=== PATIENT | female | born 1980 | race Caucasian/White ===

== ENCOUNTER → 2018-01-25 | Day surgery (SDC) | payer BC, OTHER ==
[2018-01-22 14:38] VITALS: BMI 34.6
[~2018-01-25] MED LIST: IBUPROFEN 600 MG TABLET (FP) PO PRN; LACTATED RINGERS SOLUTION 1,000 ML IV SCH; MIDAZOLAM HCL 2 MG/2 ML SINGLE DOSE VIAL ONE; ONDANSETRON 4 MG/2 ML VIAL IVPUSH PRN; PROMETHAZINE HCL 25 MG/1 ML VIAL IVPUSH PRN; PROPOFOL 20 ML ONE; ceFAZolin SODIUM 1 GM VIAL IVPB ONE; oxyCODONE HCL 5 MG TABLET ONE; oxyCODONE HCL 5 MG TABLET PO ONE; oxyCODONE HCL 5 MG TABLET PO PRN
--- NOTE | 2018-01-25 09:53 | HP ---
Past Medical History - Primary Care Physician PCP:: Josh Novak - Admission Chief Complaint: 37yo female with menorrhagia, admitted for thermal endometrial ablation. History of Present Illness: Failed conservative management of menorrhagia. Pt with regular menses and dysmenorrhea, suspected adenomyosis. History Source: Patient, Medical Record Limitations to Obtaining History: No Limitations - Past Medical History DIET TECH: No: Alzheimer's, CVA, Dementia, Migraine, Multiple Sclerosis, Peripheral Neuropathy, Parkinson's, Seizure, Syncope, TIA, Vertigo, Other Cardiovascular: No: AFIB, Aneurysm, Aortic Insufficiency, Aortic Stenosis, CAD, CHF, Deep Vein Thrombosis, HTN, Hyperlipdemia, OR, Mitral Insufficiency, Mitral Stenosis, Murmur, Pulmonary Hypertension, Other Pulmonary: No: Asthma, Bronchitis, Cancer, COPD, O2 Dependent, Pneumonia, Previously Intubated, Pulmonary Embolus, Pulmonary Fibrosis, Sleep Apnea, Other Gastrointestinal: No: Ascites, Cancer, Constipation, Crohn's Disease, Diverticulitis, Diverticulosis, Esophageal Varices, Gastritis, GERD, GI Bleed, Hemorrhoids, Hiatal Hernia, Inflamatory Bowel Disease, Irritable Bowel Disease, Pancreatitis, Peptic Ulcer Disease, Ulcerative Colitis, Other Hepatobiliary: No: Cirrhosis, Cholelithiasis, Cholecystitis, Choledocholithiasis , Hepatitis A, Hepatitis B, Hepatitis C, Other Renal/: No: Renal Failure, Renal Inusuff, BPH, Cancer, Hematuria, Hemodialysis , Neurogenic Bladder, Renal Calculi, UTI, Other Reproductive: Yes: Other (suspected adenomyosis of uterus) ...: 3 ...Para: 2 ( x 1, C/S x 1) ...Term: 2 ...Induced : 1 Heme/Onc: No: Anemia, B12 Deficiency, Bleeding Disorder, Cancer, Current Chemotherapy, Current Radiation Therapy, Hemochromatosis, Hypercoaguable State, Myeloproliferative Synd, Sickle Cell Disease, Sickle Cell Trait, Thrombocytopenia, Other Infectious Disease: No: AIDS, C-Diff, Herpes Zoster, HIV, MRSA, STD's, Tuberculosis, VREF, Other Psych: No: Addictions, Anxiety, Bipolar, Depression, Panic, Psychosis, Schizophrenia, Other Musculoskeletal: No: Bursitis, Chronic low back pain, Hemiparesis, Hemiplegia, Osteoarthritis, Paraplegia, Other Rheumatology: No: Fibromyalgia, Gout, Lupus, Rheumatoid Arthritis, Sarcoidosis, Vasculitis, Other ENT: No: Allergic Rhinitis, Sinusitis, Other Endocrine: Yes: Other (Obesity) Dermatology: No: Basal Cell, Cellulitis, Eczema, Melanoma, Psoriasis, Squamous Cell, Other - Past Surgical History Past Surgical History: Yes: Arthrosocopy (left wrist), Hx Myomectomy: No Hx Transabdominal Cerclage: No Additional Surgical History: LASIK, breast cyst aspiration, - Advance Directives Advance Directives: Yes: Health Care Proxy - Smoking History Smoking history: Former smoker Have you smoked in the past 12 months: No Aproximately how many cigarettes per day: 1 If you are a former smoker, when did you quit?: 2003 - Alcohol/Substance Use Hx Alcohol Use: Yes (social) History of Substance Use: reports: None - Social History Usual Living Arrangement: Yes: With Spouse ADL: Independent 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 History of Recent Travel: No Home Medications - Allergies Allergies/Adverse Reactions: Allergies Allergy/AdvReac Type Severity Reaction Status Date / Time sumatriptan [From Imitrex] Allergy Verified 01/25/18 08:56 zolmitriptan [From Zomig] Allergy Verified 01/25/18 08:56 bandaids Allergy Uncoded 01/25/18 08:56 - Home Medications Home Medications: Ambulatory Orders NK [No Known Home Medication] 01/22/18 Family Disease History - Family Disease History Family Disease History: CA: Father (Pancreatic) Review of Systems Findings/Remarks: Well appearing - Review of Systems Constitutional: reports: No Symptoms Eyes: reports: No Symptoms HENT: reports: No Symptoms Neck: reports: No Symptoms Cardiovascular: reports: No Symptoms Respiratory: reports: No Symptoms Gastrointestinal: reports: No Symptoms Genitourinary: reports: No Symptoms Breasts: reports: No Symptoms Reported Musculoskeletal: reports: No Symptoms Integumentary: reports: No Symptoms Neurological: reports: No Symptoms Endocrine: reports: No Symptoms Hematology/Lymphatic: reports: No Symptoms Psychiatric: reports: No Symptoms Pain Intensity: 0 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 Vital Signs: Vital Signs Temperature 97.9 F 01/25/18 08:45 Pulse Rate 88 01/25/18 08:45 Respiratory Rate 20 01/25/18 08:45 Blood Pressure 129/99 01/25/18 08:45 O2 Sat by Pulse Oximetry (%) 98 01/25/18 08:45 Constitutional: Yes: Well Nourished, No Distress, Calm Eyes: Yes: WNL, Conjunctiva Clear HENT: Yes: WNL, Atraumatic, Normocephalic Neck: Yes: WNL, Supple, Trachea Midline Cardiovascular: Yes: WNL, Regular Rate and Rhythm Respiratory: Yes: WNL, Regular, CTA Bilaterally Gastrointestinal: Yes: WNL, Normal Bowel Sounds, Soft, Abdomen, Obese ...Rectal Exam: Yes: Deferred Renal/: Yes: WNL Pelvis: Yes: WNL External Genitalia: Yes: Normal Vaginal Exam: Yes: Normal Cervix: Yes: Normal Uterus: Yes: Normal Adnexa: Normal: Left, Right Musculoskeletal: Yes: WNL Extremities: Yes: WNL Edema: No Integumentary: Yes: WNL Neurological: Yes: WNL, Alert, Oriented ...Motor Strength: WNL Psychiatric: Yes: WNL, Alert, Oriented Imaging - Results Ultrasound: Report Reviewed Assessment/Plan 37yo female with menorrhagia admitted for endometrial ablation. We had discussed the risks, benefits, alternatives of surgery at length including but not limited to infection, bleeding, scarring, perforation, amenorrhea, infertility, hysterectomy, etc. We also discussed the specific risks of thermal ablation including thermal injury, and failed ablation. The pt verbalized understanding and requested to proceed with surgery. I emphasized that all surgeries have risks and no guarantees can be provided
--- NOTE | 2018-01-25 11:10 | OP ---
Operative Note - Note: Operative Date: 01/25/18 Pre-Operative Diagnosis: Menorrhagia, dysmenorrhea Operation: Hysteroscopy, D&C, thermal endometrial ablation Findings: Enlarged uterine cavity w/o lesions Post-Operative Diagnosis: Same as Pre-op Surgeon: Josh Novak Anesthesiologist/LIDAR SCIENTIST: Lucero Eli MD Anesthesia: General Specimens Removed: Endometrial curettings Estimated Blood Loss (mls): 10 Blood Volume Replaced (mls): 0 Fluid Volume Replaced (mls): 400 Operative Report Dictated: Yes
[2018-01-25 13:56] VITALS: BP 121/77; PULSE 78; TEMP 98.8
--- NOTE | 2018-01-25 19:24 | OP ---
DATE OF OPERATION: 01/25/2018 PREOPERATIVE DIAGNOSES: Menorrhagia and dysmenorrhea, suspected adenomyosis. POSTOPERATIVE DIAGNOSES: Menorrhagia and dysmenorrhea, suspected adenomyosis. PROCEDURE: Hysteroscopy, dilatation and curettage, thermal ablation using [employer] system. SURGEON: Praveen Leigh MD ASTRONOMY PROFESSOR: None. ANESTHESIOLOGIST: Lucero Eli MD ANESTHESIA: General. COMPLICATIONS: None. ESTIMATED BLOOD LOSS: 10 mL INTRAVENOUS FLUIDS: Crystalloids 400 mL. PATHOLOGY: Endometrial curettings. FINDINGS: Examination under anesthesia revealed a small anteverted uterus with no pelvic or adnexal masses. Hysteroscopy revealed an enlarged uterine cavity without any lesions. The endometrial ablation was done under direct visualization at all times and without complications. DESCRIPTION OF PROCEDURE: The patient was met preoperatively. Risks, benefits, and alternatives of surgery were discussed in details. Risks of infection, bleeding, perforation, thermal injury, scarring, pain, failed endometrial ablation, need for additional surgery to repair or treat any complications or injuries, etc., were discussed with the patient. The patient verbalized her understanding. All questions were answered. The consent form was reviewed and signed. The patient was then brought to the OR with the IV running. She was placed on the surgical table in a supine position. General anesthesia was achieved without difficulty. The patient was then placed in a dorsal lithotomy position using adjustable Ky stirrups. She was examined under anesthesia with the findings as described above. The patient was then prepped and draped in the usual sterile fashion. A timeout procedure was conducted as per standard protocol. A weighted speculum was introduced inside the patient's vagina with good visualization of the cervix. The anterior cervix was grasped with a single-tooth tenaculum. The cervical os was dilated to accommodate a size 23 David dilator. A hysteroscope was then advanced gently through the cervical canal and into the uterine cavity. A slightly enlarged but otherwise normal uterine cavity was noted. The hysteroscope was then removed, and gentle uterine curettage was performed. The tissue was sent to Pathology. The hysteroscope was then once again introduced into the uterine cavity. A fluid seal was confirmed using the standard protocol for Sharypicys HTA. Once the fluid seal was established, the hydrothermal ablation was initiated. The procedure was performed under direct visualization with good results. Once the endometrial ablation was accomplished, all of the instruments were removed from the patient. Good hemostasis was noted. Sponge, lap, and instrument counts were correct. The patient was returned to supine position and transferred to recovery room, awake and in stable condition. PRAVEEN LEIGH M.D. ASHER/[id number]
--- NOTE | 2018-01-26 17:22 | PATH ---
Surgical Pathology Report Patient Name: KELLY CHAVIRA [facility]. Rec. #: [id number] /Age/Gender: 1980 (Age: 37) / F Account: [id number] Location: [facility] Taken: 01/25/2018 Received: 01/25/2018 Reported: 01/26/2018 Physicians: Josh Novak M.D. Specimen(s) Received ENDOMETRIAL CURETTINGS Clinical History Menorrhagia Final Diagnosis ENDOMETRIAL CURETTINGS, DILATION AND CURETTAGE: FRAGMENTS OF SECRETORY ENDOMETRIUM. Electronically Signed Kortney Polanco M.D. Gross Description Received in formalin labeled "endometrial curettings" is a 1.5 x 1.0 x 0.2 cm aggregate of santiago pink soft tissue fragments. The formalin is filtered and the specimen is entirely submitted in one cassette. /01/25/2018 saudi/01/25/2018
== END | disposition home or self-care (01) ==
LOC: JASU-SURG 05:25
PROVIDERS: ATTEND Obstetrics & Gynecology
PROC: 0U5B8ZZ Destruction of Endometrium, Via Natural or Artificial Opening Endoscopic (ICD-10-PCS; principal; 2018-01-25 10:00)
PROC: 0UDB8ZX Extraction of Endometrium, Via Natural or Artificial Opening Endoscopic, Diagnostic (ICD-10-PCS; 2018-01-25 10:00)
DX: N92.1 Excessive and frequent menstruation with irregular cycle (principal); N94.6 Dysmenorrhea, unspecified
CPT/HCPCS: 36415; 84703; 86850; 86900; 86901; 88305-TC; 94760